=== PATIENT | male | born 1960 ===

== ENCOUNTER 2021-03-16 06:37 | Day surgery (SDC) | payer OTHER ==
[~2021-03-16 06:37] MED LIST: CHILDREN'S ASPI81 MG PO; CLONAZEPAM0.5 M1 PO; CRESTOR20 MG PO; LEVOTHYROXINE25 MCG PO; LOSARTAN POTASS25 MG PO; OMEPRAZOLE MAGN20 MG
[2021-03-16] MEDS ORDERED: PERCOCET 5-3251 EACH PO (09:26)
[2021-03-16] MEDS ORDERED: RECTICARE30 GM TOP (09:27)
== END 2021-03-16 14:30 | disposition home or self-care (01) ==
LOC: CIR.AMB 06:37
PROVIDERS: ATTEND Surgery
DX: K64.4 Residual hemorrhoidal skin tags (principal); K64.2 Third degree hemorrhoids; Z20.822 Contact with and (suspected) exposure to COVID-19